=== PATIENT | male | born 1995 | race Caucasian/White ===

== ENCOUNTER 2020-02-14 14:35 | Emergency (ER) | payer SELFPAY ==
[2020-02-14 14:41] VITALS: BP 148/78; PULSE 78; RESP 16; TEMP 37.2; O2SAT 99
--- NOTE | 2020-02-14 14:51 | ED.URI ---
HPI - URI/Sore Throat General Chief Complaint: Upper Respiratory Infection Stated Complaint: FEVER Time Seen by Provider: 02/14/20 14:51 Source: patient and RN notes reviewed Mode of arrival: ambulatory Limitations: no limitations History of Present Illness HPI Narrative: 24-year-old male who presents to [facility] care with complaints of some runny nose,sinus pressure, fever with chills, cough and body aches starting on Wednesday. Patient denies any recent travel or shortness of breath. Patient states that on Wednesday he had a runny nose and threw up and had some cough with chest mucous. On Wednesday and Wednesday patient states that he had chills with 99-100F temperature with dry cough, throat feeling raspy. He states that this morning his fever is 101F and continues to have some body aches, chills, cough and nasal drainage, denies any shortness of breath, SAO2 99% on room air. MD elicited complaint: fever, cough, sore throat, rhinorrhea, nasal congestion and sinus pain Onset (ago): day(s) (4) Consistency: progressively worsening Severity: moderate Description of mucous: clear Able to tolerate fluids by mouth: Yes Exacerbating factors: swallowing and exertion Relieving factors: nothing Associated symptoms: fever, chills, myalgias, headache, rhinorrhea, nasal congestion, sore throat and cough Treatments prior to arrival: none Related Data Allergies Allergy/AdvReac Type Severity Reaction Status Date / Time No Known Allergies Allergy Verified 02/14/20 14:40 Review of Systems Review of Systems: Narrative: CONSTITUTIONAL: positive fever, chills, or sweats. EYES: Denies visual changes, redness, or discharge. ENT: positive rhinorrhea, congestion, sinus pressure,sore throat, no otalgia. CARDIOVASCULAR: Denies chest pain, palpitations, or edema. RESPIRATORY: Positive cough denies dyspnea. GASTROINTESTINAL: Denies abdominal pain, nausea, one episode of vomiting, no diarrhea. GENITOURINARY: Denies dysuria or hematuria. SKIN: Denies rash or itching. MUSCULOSKELETAL: Denies back pain, joint pain,positive body aches NEUROLOGIC: Denies headache, numbness, or weakness. PSYCHIATRIC: Denies anxiety or depression. All systems reviewed & are unremarkable except as noted in HPI and below PMFSH Past Medical History Medical History (Updated 02/14/20 @ 18:17 by Abena Damon NP) No significant medical problems Social History Social History (Updated 02/14/20 @ 15:07 by Abena Damon NP) Smoking status: Former smoker Tobacco type: cigarettes Smoking end date: 10/29/19 Living arrangements: with family Gender identity (if verbalized by the patient): Male Comments At time of signature, agree with nursing past medical, social history. There is no relevant family history pertinent to the presenting complaint Exam Narrative: Exam Narrative: GENERAL: Well-appearing, well-nourished, and in no acute distress. HEAD: Normocephalic, atraumatic. EYES: PERRLA and EOMI. ENT: Nares ;oght red with clear rhinorrhea no epistaxis. some facial pressure Mucous membranes moist.TM's normal with good light reflex, throat slightly red with no lesions or exudates,mild tonsil swelling NECK: Supple.no lymphadenopathy CHEST: Clear to auscultation. No respiratory distress.cough dry feels like mucous in chest HEART: Regular rate and rhythm. No murmur heard. Normal peripheral pulses. ABDOMEN: Soft, nontender, nondistended, normal active bowel sounds. EXTREMITIES: Normal range of motion. No edema. SKIN: Warm, dry, no rash. NEURO: No focal deficits. Alert and oriented x3. Course Vital Signs Vital signs: Vital Signs Temperature 37.2 C 02/14/20 14:41 Pulse Rate 78 02/14/20 14:41 Respiratory Rate 16 02/14/20 14:41 Blood Pressure 148/78 H 02/14/20 14:41 Pulse Oximetry 99 02/14/20 14:41 Temperature 37.2 C 02/14/20 14:41 Pulse Rate 78 02/14/20 14:41 Respiratory Rate 16 02/14/20 14:41 Blood Pressure 148/78 H 02/14/20 14:41 Puls
== END 2020-02-14 15:30 | disposition home or self-care (01) ==
PROVIDERS: Emergency Provider Registered Nurse
DX: J06.9 Acute upper respiratory infection, unspecified (principal); J02.9 Acute pharyngitis, unspecified; R05 Cough; Z87.891 Personal history of nicotine dependence
CPT/HCPCS: 87081; 87880; 99213; G0463

== ENCOUNTER 2025-09-03 16:58 | Emergency (ER) | payer BC, SELFPAY ==
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
[2025-09-03 17:32] VITALS: BP 150/85; PULSE 63; RESP 20; TEMP 37.1; O2SAT 100
--- NOTE | 2025-09-03 18:16 | ED.GENADULT ---
HPI - General Adult General Chief complaint: Environmental Exposure Stated complaint: listen to lungs Time Seen by Provider: 09/03/25 17:57 Source: patient and RN notes reviewed Mode of arrival: ambulatory Limitations: no limitations History of Present Illness HPI narrative: 29-year-old male patient presents today for physical exam. 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 States there was not a respirator available for him to use. During this time he became lightheaded and got a headache. He stepped outside for some air and developed some postnasal drip and mild shortness of breath. Also reports afterwards some mild bleeding to his midline upper gumline. Symptoms have improved since being out in the open air. States he is here to get a baseline in case he develops additional symptoms later related to his work today. 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 Related Data Home Medications ?Medication ?Instructions ?Recorded ?Confirmed ?Last Taken ?Type bupropion HCl 200 mg tablet,12 hr 200 mg PO BID 07/20/22 07/20/22 Unknown History sustained-release Allergies Allergy/AdvReac Type Severity Reaction Status Date / Time No Known Allergies Allergy Verified 09/03/25 17:47 [facility] Past Medical History Medical History Anxiety Essential (primary) hypertension Social History Social History Smoking status: Former smoker Tobacco type: cigarettes Smoking end date: 10/29/19 Alcohol intake: current Alcohol use details: Social/Weekends Substance use: former Substance use type: marijuana Living arrangements: alone Occupation/Education: occupation 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 Please see nursing chart for further information. There is no relevant family history pertinent to the presenting complaint Exam Narrative: GENERAL: Well-appearing, well-nourished, and in no acute distress. HEAD: Normocephalic, atraumatic. EYES: EOMI. PERRL. No redness or drainage. Conjunctivae normal. ENT: Mucous membranes pink and moist. Nares clear. No rhinorrhea. TMs normal bilaterally. Throat normal. Uvula midline. Gumline normal. NECK: Normal AROM. Supple. No lymphadenopathy. CHEST: No respiratory distress. Clear to auscultation. HEART: Regular rate and rhythm. No murmur appreciated. Normal peripheral pulses. EXTREMITIES: Normal range of motion. No edema. SKIN: Warm, dry, no rash. Capillary refill normal. Normal skin turgor. NEURO: No focal deficits. Alert and oriented x3. Gait steady. Hand historic site administrator equal and strong. Finger-nose normal. Heel-barron normal. PSYCH: Normal affect. No signs of depression or anxiety. Course Course Level of Care: Express Care Visit Vital Signs Vital signs: Vital Signs Temperature 98.8 F 09/03/25 17:32 Pulse Rate 63 09/03/25 17:32 Respiratory Rate 20 09/03/25 17:32 Blood Pressure 150/85 H 09/03/25 17:32 Pulse Oximetry 100 09/03/25 17:32 Oxygen Delivery Room Air 09/03/25 17:32 Temperature 98.8 F 09/03/25 17:32 Pulse Rate 63 09/03/25 17:32 Respiratory Rate 20 09/03/25 17:32 Blood Pressure 150/85 H 09/03/25 17:32 Pulse Oximetry 100 09/03/25 17:32 Oxygen Delivery Room Air 09/03/25 17:32 Reviewed Medical Decision Making MDM Narrative Medical decision making narrative: 29-year-old male patient presents today for physical exam. 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 States there was not a respirator available for him to use. During this time he became lightheaded and got a headache. Stepped outside for air and developed PND and some gum bleeding. States some boilers have asbestos and silica in them. He is not aware if the boiler today exposed him to either of these. Today he wants a baseline exam in case he develops additional symptoms related to his work today. Patient's exam today was normal. Patient inquired as to whether he should seek baseline blood work today. Told him that he could call him primary if he wanted to some routine bloodwork done, but he does not have a PCP. Will provide with physician liason #. At this time, no point of care testing or x-rays are indicated. VSS today. ED precautions given such as development of fever, shortness breath. Patient agrees with plan Vital Signs Vital Signs: Vital Signs Temperature 98.8 F 09/03/25 17:32 Pulse Rate 63 09/03/25 17:32 Respiratory Rate 20 09/03/25 17:32 Blood Pressure 150/85 H 09/03/25 17:32 Pulse Oximetry 100 09/03/25 17:32 Oxygen Delivery Room Air 09/03/25 17:32 Temperature 98.8 F 09/03/25 17:32 Pulse Rate 63 09/03/25 17:32 Respiratory Rate 20 09/03/25 17:32 Blood Pressure 150/85 H 09/03/25 17:32 Pulse Oximetry 100 09/03/25 17:32 Oxygen Delivery Room Air 09/03/25 17:32 Critical Care Time Critical Care Time Critical Care Time: No Discharge Plan Discharge Clinical Impression: Dizziness Headache Qualifiers: Headache type: unspecified Headache chronicity pattern: episodic headache Intractability: not intractable Qualified Code(s): R51.9 - Headache, unspecified Patient Disposition: Home Condition: Stable Additional Instructions: Your exam is normal today. As discussed, if you start running a fever greater than 100.3, development of shortness of breath, or otherwise start feeling ill, please go to the ER immediately for further evaluation. If he would like help finding a PCP, please call the physician liaison number at [facility] at [phone]. Your blood pressure was elevated above 120/80 today at Urgent Care. This puts you above the threshold for follow up. Please schedule a followup visit with your personal physician as soon as possible, for further evaluation and treatment. Even blood pressure exceeding 120/80 may indicate pre-hypertension. Patient Language: [place] Prescriptions: No Action bupropion HCl 200 mg tablet sustained-release 12 hr 200 mg PO BID buspirone 5 mg tablet 5 mg PO TID Qty: 90 1RF alprazolam 0.5 mg tablet 0.5 mg PO BID Qty: 60 1RF amlodipine 5 mg tablet 5 mg PO DAILY Qty: 90 0RF Follow-up/Referrals: PHYSICIAN,SERVICE [facility] CONTACT [Primary Care Provider, Internal Medicine] Time of Disposition: 18:16
== END 2025-09-03 18:22 | disposition home or self-care (01) ==
PROVIDERS: Emergency Provider Nurse Practitioner
DX: R42 Dizziness and giddiness (principal); R51.9 Headache, unspecified; I10 Essential (primary) hypertension; Z87.891 Personal history of nicotine dependence
CPT/HCPCS: 99211; G0463